=== PATIENT | female | born 1985 | race Asian ===

== ENCOUNTER 2024-02-05 08:08 | Emergency (ER) | payer OTHER ==
[~2024-02-05] VITALS: Ht 149.9 cm; Wt 68.2 kg
[2024-02-05 09:47] LABS: ALANINE AMINOTRANSFERASE 65 U/L (12-78); ALBUMIN 3.2 G/DL (3.4-5.0); ALBUMIN/GLOBULIN RATIO 0.8 (1.1-1.5); ALKALINE PHOSPHATASE 70 IU/L (46-116); ANION GAP 6 (8-16); ASPARTATE AMINO TRANSFERASE 44 U/L (10-37); BILIRUBIN,TOTAL 0.3 MG/DL (0.1-1.0); BLOOD UREA NITROGEN 15 MG/DL (7-18); BUN/CREATININE RATIO 23.4 (10.0-20.0); CALCIUM 8.6 MG/DL (8.5-10.1); CHLORIDE 105 MMOL/L (99-107); CREATININE 0.64 MG/DL (0.40-0.90); GLUCOSE 101 MG/DL (70-104); LIPASE 18 U/L (16-77); POTASSIUM 4.3 MMOL/L (3.5-5.1); SODIUM 135 MMOL/L (135-145); TOTAL CARBON DIOXIDE 24.2 MMOL/L (24-32); eCRCL 80 ML/MIN; eGFR > 90 ML/MIN
[2024-02-05 09:58] LABS: BASOPHILS % (AUTO) 0.5 % (0-1); EOSINOPHILS # (AUTO) 0.1 X10'3 (0-0.9); EOSINOPHILS % (AUTO) 1.9 % (0-6); HEMATOCRIT 40.6 % (35.0-45.0); HEMOGLOBIN 13.5 g/dl (12.0-16.0); LYMPHOCYTES # (AUTO) 1.3 X10'3 (1.1-4.8); LYMPHOCYTES % (AUTO) 17.9 % (21-51); MEAN CORPUSCULAR HEMOGLOBIN 30.9 PG (27.0-31.0); MEAN CORPUSCULAR HGB CONC 33.3 g/dL (33.0-36.5); MEAN CORPUSCULAR VOLUME 92.8 FL (78-98); MEAN PLATELET VOLUME 8.1 FL (7.4-10.4); MONOCYTES # (AUTO) 0.8 X10'3 (0-0.9); MONOCYTES % (AUTO) 10.3 % (2-12); NEUTROPHILS # (AUTO) 5.1 X10'3 (1.8-7.7); NEUTROPHILS % (AUTO) 69.4 % (42-75); PLATELET COUNT 322 X10'3 (140-440); RED BLOOD COUNT 4.37 X10'6 (4.20-5.60); RED CELL DISTRIBUTION WIDTH 13.1 % (11.5-14.5); WHITE BLOOD COUNT 7.3 X10'3 (4.5-11.0)
[2024-02-05] MEDS: pantoprazole 40 MG vial IV SCH (10:07)
[2024-02-05] MEDS: ondansetron/PF 4mg/2ml inj IV ONE (10:07)
[2024-02-05] MEDS: normal saline 1000ml 1,000 ML IV ONE (10:07)
[2024-02-05 11:24] LABS: BILIRUBIN,URINE NEGATIVE (Neg); CLARITY,URINE CLEAR (Clear); COLOR,URINE YELLOW (Yellow); GLUCOSE, URINE NEGATIVE (Neg); KETONES,URINE NEGATIVE (Neg); LEUKOCYTE ESTERASE ,URINE NEGATIVE (Neg); NITRITES, URINE NEGATIVE (Neg); OCCULT BLOOD,URINE SMALL (Neg); PROTEIN,URINE NEGATIVE (Neg); UROBILINOGEN,URINE 0.2 E.U/dL (0.2-1.0)
[2024-02-05 11:31] LABS: UA COLLECTION TYPE CLN CATCH MIDSTREAM
[2024-02-05 11:33] LABS: BACTERIA,URINE 1+ /HPF (Neg)
[2024-02-05 11:34] LABS: SQUAMOUS EPITHELIAL CELL,UR MODERATE /LPF (FEW); TRANSITIONAL EPI CELLS,URINE FEW /HPF
[2024-02-05] MEDS: morphine 2 MG/ML inj. syringe IV ONE (12:27)
[2024-02-05 12:31] VITALS: RESP 16; TEMP 98.3
[2024-02-05 13:05] LABS: URINE HCG NEGATIVE (NEG)
[2024-02-05 13:55] VITALS: BP 119/81; PULSE 73; O2SAT 98
== END 2024-02-05 13:57 | disposition home or self-care (01) ==
LOC: ER 08:08
DX: K52.9 Noninfective gastroenteritis and colitis, unspecified (principal); K29.00 Acute gastritis without bleeding; R11.10 Vomiting, unspecified; R10.9 Unspecified abdominal pain
CPT/HCPCS: 36415; 80053; 81001; 81025; 83605; 83690; 84145; 85025; 87088; 96361; 96374; 96375; 99284; J2270; J2405; J2470; J7030